=== PATIENT | female | born 1995 ===

== ENCOUNTER 2016-09-17 19:47 | Emergency (ER) | payer OTHER ==
[2016-09-17 20:14] VITALS: BP 142/82; PULSE 94; RESP 16; TEMP 98.8; O2SAT 98
--- NOTE | 2016-09-17 20:46 | ED PDOC ---
HPI: CCC, URI, Sore Throat Time Seen by Provider: 09/17/16 20:26 Chief Complaint (Nursing): Cough, Cold, Congestion Chief Complaint (Provider): congestion History Per: Patient History/Exam Limitations: no limitations Onset/Duration Of Symptoms: Days (2) Current Symptoms Are (Timing): Still Present Location Of Pain: Ear(s), Throat, Sinus/es, Headache Associated Symptoms: Sore Throat, Sinus Drainage, Nasal Congestion Additional History Per: Patient Additional Complaint(s): 21 y/o female presents with congestion x 2 days. Associated nasal congestion, left ear pain, sore throat, dry cough and left facial pain. Patient notes facial pain to be worse when leaning forward, with left-sided headache. Denies fever, nausea/vomiting, chest pain, shortness of breath, palpitations, abdominal pain, recent travel. Past Medical History Reviewed: Historical Data, Nursing Documentation, Vital Signs Vital Signs: Last Vital Signs Temp 98.8 F 09/17/16 20:09 Pulse 94 H 09/17/16 20:09 Resp 16 09/17/16 20:09 BP 142/82 09/17/16 20:09 Pulse Ox 98 09/17/16 20:09 - Medical History PMH: No Chronic Diseases - Surgical History Surgical History: No Surg Hx - Family History Family History: States: Unknown Family Hx - Living Arrangements Living Arrangements: With Family - Home Medications Home Medications: Ambulatory Orders Medication Instructions Recorded Naproxen 375 mg PO Q8 PRN #21 tab 10/07/14 Amoxicillin/Clavulanate [Augmentin 1 tab PO Q12 #14 tab 09/17/16 875 MG-125 MG] Fluticasone Nasal [Flonase] 1 actuation NS BID #1 bottle 09/17/16 - Allergies Allergies/Adverse Reactions: Allergies Allergy/AdvReac Type Severity Reaction Status Date / Time No Known Allergies Allergy Verified 10/06/14 22:18 Review of Systems ROS Statement: Except As Marked, All Systems Reviewed And Found Negative ENT: Positive for: Nose Congestion, Throat Pain, Other (facial pain) Cardiovascular: Positive for: Paroxysmal Noc. Dyspnea Physical Exam - Reviewed Nursing Documentation Reviewed: Yes Vital Signs Reviewed: Yes - Physical Exam Appears: Positive for: Well, Non-toxic, No Acute Distress Head Exam: Positive for: ATRAUMATIC, NORMAL INSPECTION, NORMOCEPHALIC Skin: Positive for: Normal Color Eye Exam: Positive for: Normal appearance ENT: Positive for: TM Is/Are (erythematous b/l), Sinus Pain/Drainage (left maxillary), Pharyngeal Erythema. Negative for: Tonsillar Exudate, Tonsillar Swelling Cardiovascular/Chest: Positive for: Regular Rate, Rhythm Respiratory: Positive for: Normal Breath Sounds Gastrointestinal/Abdominal: Positive for: Normal Exam Back: Positive for: Normal Inspection Extremity: Positive for: Normal ROM Lymphatic: Positive for: Normal Exam Neurologic/Psych: Positive for: Alert, Oriented - ECG O2 Sat by Pulse Oximetry: 98 - Progress ED Course And Treament: Patient educated on findings, discharged with rx Augmentin, Flonase. Advised follow up PMD 2-3 days. Fluids. Rest. Return to ED for worsening/concerning symptoms. Disposition - Clinical Impression Clinical Impression: Sinusitis - Patient ED Disposition Is Patient to be Admitted: No Counseled Patient/Family Regarding: Diagnosis, Need For Followup, Rx Given - Disposition Disposition: Routine/Home Disposition Time: 20:48 Condition: GOOD Prescriptions: Amoxicillin/Clavulanate [Augmentin 875 MG-125 MG] 1 tab PO Q12 #14 tab Fluticasone Nasal [Flonase] 1 actuation NS BID #1 bottle Instructions: Rhinosinusitis (ED)
== END 2016-09-17 21:10 | disposition home or self-care (01) ==
LOC: H.ER 19:47
DX: J32.9 Chronic sinusitis, unspecified (principal)

== ENCOUNTER 2016-10-28 18:21 | Emergency (ER) | payer OTHER ==
[2016-10-28 18:53] VITALS: BP 105/65; PULSE 73; RESP 16; TEMP 98.5; O2SAT 100
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
--- NOTE | 2016-10-29 12:08 | RAD ---
PROCEDURE: Right Hand Radiographs. HISTORY: Foreign body, area of anatomic interest 3rd digit. COMPARISON: None. FINDINGS: BONES: Normal. No fracture. JOINTS: Normal. No osteoarthritic changes. SOFT TISSUES: No visulaized radiopaque/visualized foreign body. OTHER FINDINGS: None. IMPRESSION: No significant or acute findings to account for/ related to the clinical presentation. No preliminary report provided by emergency department personnel.
== END 2016-10-28 20:11 | disposition home or self-care (01) ==
LOC: H.ER 18:21
DX: Z18.81 Retained glass fragments (principal)

== ENCOUNTER 2017-01-29 19:50 | Emergency (ER) | payer OTHER ==
[2017-01-29 20:02] VITALS: BP 105/69; PULSE 93; RESP 16; TEMP 98.5; O2SAT 98
--- NOTE | 2017-01-29 20:40 | ED PDOC ---
HPI: General Adult Time Seen by Provider: 01/29/17 20:07 Chief Complaint (Nursing): Cough, Cold, Congestion Chief Complaint (Provider): sinus congestion History Per: Patient History/Exam Limitations: no limitations Current Symptoms Are (Timing): Still Present Additional Complaint(s): 22 y/o female presents to the emergency department with sinus pain, facial pain , nasal congestion and sore throat x2 weeks. Patient states at onset of symptoms 2 weeks ago she has subjective fever but this has since resolved. Patient has been taking Nyquil which only helps minimally. Patient states she was sent home from work today as congestion worsened and she vomited phlegm x 1 at work. Patient is tolerating liquids and solids since emesis earlier. PMD: None Past Medical History Reviewed: Historical Data, Nursing Documentation, Vital Signs Vital Signs: Last Vital Signs Temp 98.5 F 01/29/17 19:59 Pulse 93 H 01/29/17 19:59 Resp 16 01/29/17 19:59 BP 105/69 01/29/17 19:59 Pulse Ox 98 01/29/17 20:43 - Medical History PMH: No Chronic Diseases - Surgical History Surgical History: No Surg Hx - Family History Family History: States: No Known Family Hx - Living Arrangements Living Arrangements: With Family - Social History Current smoker - smoking cessation education provided: Yes (on occasion) Alcohol: None Drugs: Denies - Home Medications Home Medications: Ambulatory Orders Medication Instructions Recorded Naproxen 375 mg PO Q8 PRN #21 tab 10/07/14 Amoxicillin/Clavulanate [Augmentin 1 tab PO Q12 #14 tab 09/17/16 875 MG-125 MG] Fluticasone Nasal [Flonase] 1 actuation NS BID #1 bottle 09/17/16 Cephalexin [cephalexin] 500 mg PO BID #20 cap 10/28/16 Azithromycin [Zithromax] 250 mg PO DAILY #6 tab 01/29/17 Fluticasone Propionate [Flonase] 1 actuation NS DAILY #1 bottle 01/29/17 - Allergies Allergies/Adverse Reactions: Allergies Allergy/AdvReac Type Severity Reaction Status Date / Time No Known Allergies Allergy Verified 01/29/17 19:59 Review of Systems ROS Statement: Except As Marked, All Systems Reviewed And Found Negative (As per HPI, otherwise negative) Constitutional: Positive for: Fever (subjective, 2 weeks ago, since resolved), Other (Body aches - 2 weeks ago, since resolved). Negative for: Chills, Sweats ENT: Positive for: Nose Congestion, Throat Pain Gastrointestinal: Positive for: Vomiting (vomited phlegm earlier, no emesis since then). Negative for: Abdominal Pain, Diarrhea Physical Exam - Reviewed Nursing Documentation Reviewed: Yes Vital Signs Reviewed: Yes - Physical Exam Appears: Positive for: Well, Non-toxic, No Acute Distress Skin: Positive for: Normal Color. Negative for: Rash Eye Exam: Positive for: Normal appearance, EOMI, PERRL ENT: Positive for: Nasal Congestion, Other (Moderate sinus and nasal congestion , tenderness overlying right frontal and maxillary sinuses) Neck: Positive for: Normal Cardiovascular/Chest: Positive for: Regular Rate, Rhythm Respiratory: Positive for: Normal Breath Sounds Neurologic/Psych: Positive for: Alert, Oriented (x3) - ECG O2 Sat by Pulse Oximetry: 98 (RA) Pulse Ox Interpretation: Normal Medical Decision Making Medical Decision Making: Time:2037 Initial impression: Sinusitis Plan: Rx Zithromax and Flonase. --Patient is medically stable for discharge. Clinical Impression: Sinusitis Scribe Attestation: Documented by Montserrat Alex, acting as a scribe for Salima Holguin PA-C Provider Scribe Attestation: All medical record entries made by the Scribe were at my direction and personally dictated by me. I have reviewed the chart and agree that the record accurately reflects my personal performance of the history, physical exam, medical decision making, and the department course for this patient. I have also personally directed, reviewed, and agree with the discharge instructions and disposition. Disposition - Clinical Impression Clinical Impression: Sinusitis - Patient ED Disposition Is Patient to be Admitted: No Counseled Patient/Family Regarding: Diagnosis, Need For Followup, Rx Given - Disposition Referrals: [facility] [Outside] Disposition: Routine/Home Disposition Time: 20:45 Condition: STABLE Additional Instructions: Take prescription medicines directed. Take [id number] Sudafed during the day for congestion relief. Take [id number] Benadryl before bedtime for congestion relief. Follow up with primary care doctor in 2-3 days. Prescriptions: Azithromycin [Zithromax] 250 mg PO DAILY #6 tab Fluticasone Propionate [Flonase] 1 actuation NS DAILY #1 bottle Instructions: Sinusitis (ED) Forms: [employer] ([place] Citizen)
== END 2017-01-29 23:26 | disposition home or self-care (01) ==
LOC: H.ER 19:50
DX: R09.81 Nasal congestion (principal); J32.9 Chronic sinusitis, unspecified; F17.200 Nicotine dependence, unspecified, uncomplicated

== ENCOUNTER 2017-07-07 17:55 | Emergency (ER) | payer OTHER ==
[2017-07-07 18:04] VITALS: BP 124/81; PULSE 76; RESP 16; TEMP 98.5; O2SAT 100
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
--- NOTE | 2017-07-08 08:33 | RAD ---
PROCEDURE: Radiographs of the Right Shoulder HISTORY: Trauma COMPARISON: No prior. FINDINGS: BONES: Bone alignment and mineralization are normal. There is no acute displaced fracture or bone destruction. JOINTS: Normal. Glenohumeral and acromioclavicular joints preserved. SOFT TISSUES: Normal. OTHER FINDINGS: None. IMPRESSION: No acute fracture or dislocation.
== END 2017-07-07 18:52 | disposition home or self-care (01) ==
LOC: H.ER 17:55
DX: S43.401A Unspecified sprain of right shoulder joint, initial encounter (principal); Y09 Assault by unspecified means; F17.200 Nicotine dependence, unspecified, uncomplicated